=== PATIENT | female | born 1995 | race Two or more races ===

== ENCOUNTER 2019-08-27 09:54 | Outpatient (CLI) | payer OTHER | END 2019-08-27 10:07 | disposition home or self-care (01) | LOC: LAB 09:54 | DX: E16.1 Other hypoglycemia (principal); N39.0 Urinary tract infection, site not specified; E78.2 Mixed hyperlipidemia; E56.9 Vitamin deficiency, unspecified; E55.9 Vitamin D deficiency, unspecified; E03.8 Other specified hypothyroidism; R97.1 Elevated cancer antigen 125 [CA 125]; R53.1 Weakness; E66.01 Morbid (severe) obesity due to excess calories; Z11.3 Encounter for screening for infections with a predominantly sexual mode of transmission; M54.89 Other dorsalgia ==

== ENCOUNTER 2020-08-18 14:08 | Outpatient (CLI) | payer OTHER | END 2020-08-18 14:11 | disposition home or self-care (01) | LOC: LAB 14:08 | PROVIDERS: ATTEND Obstetrics & Gynecology | DX: A51.0 Primary genital syphilis (principal) ==

== ENCOUNTER → 2020-08-19 09:39 | Outpatient (CLI) | payer OTHER | END | disposition home or self-care (01) | LOC: LAB 09:39 | PROVIDERS: ATTEND Obstetrics & Gynecology | DX: E16.2 Hypoglycemia, unspecified (principal); N39.0 Urinary tract infection, site not specified; E78.2 Mixed hyperlipidemia; E56.8 Deficiency of other vitamins; E03.8 Other specified hypothyroidism; R97.1 Elevated cancer antigen 125 [CA 125]; R53.1 Weakness; E66.01 Morbid (severe) obesity due to excess calories; Z11.3 Encounter for screening for infections with a predominantly sexual mode of transmission ==

== ENCOUNTER 2021-01-14 08:19 | Outpatient (CLI) | payer OTHER | END 2021-01-14 08:22 | disposition home or self-care (01) | LOC: RAD 08:19 | PROVIDERS: ATTEND General Practice | DX: M25.552 Pain in left hip (principal); M25.551 Pain in right hip ==

== ENCOUNTER → 2021-03-02 | Outpatient (CLI) | payer OTHER | END | disposition home or self-care (01) | LOC: PPH VACUNA 08:00 | PROVIDERS: ATTEND Emergency Medicine Pediatric Emergency Medicine | DX: Z23 Encounter for immunization (principal) ==

== ENCOUNTER 2021-04-16 08:00 | Outpatient (CLI) | payer OTHER | END 2021-04-16 08:30 | disposition home or self-care (01) | LOC: PPH VACUNA 08:00 | PROVIDERS: ATTEND Emergency Medicine Pediatric Emergency Medicine | DX: Z23 Encounter for immunization (principal) ==

== ENCOUNTER 2021-12-20 07:53 | Outpatient (CLI) | payer OTHER | END 2021-12-20 08:00 | disposition home or self-care (01) | LOC: LAB 07:53 | DX: E16.2 Hypoglycemia, unspecified (principal); N39.0 Urinary tract infection, site not specified; E78.2 Mixed hyperlipidemia; E56.9 Vitamin deficiency, unspecified; E55.9 Vitamin D deficiency, unspecified; E03.9 Hypothyroidism, unspecified; R97.1 Elevated cancer antigen 125 [CA 125]; R53.1 Weakness; E66.01 Morbid (severe) obesity due to excess calories; Z11.3 Encounter for screening for infections with a predominantly sexual mode of transmission ==